=== PATIENT | female | born 1990 | race Caucasian/White ===

== ENCOUNTER 2016-07-19 20:04 | Emergency (ER) | payer BC ==
[~2016-07-19] VITALS: Ht 172.7 cm; Wt 70.0 kg
[~2016-07-19 20:04] MED LIST: TRAM50 PO
[2016-07-19 20:07] VITALS: BP 121/74; PULSE 94; RESP 22; TEMP 99; O2SAT 97
--- NOTE | 2016-07-19 20:43 | PD ---
Physical Exam Date Seen by Provider: Jul 19, 2016 Time Seen by Provider: 20:39 Narrative 25 y/o female here with 5 day Hx. Bronchitis treated with Azithromycin for 3 days, with increased SOB and Wheezing today. No Hx Asthma or other lung disease. Has had fevers. No Sore throat. Has been having Bad SYED today. V/S Stable. Awaiting Med bed Placement. Data Data Last Documented VS Vital Signs Date Time Temp Pulse Resp B/P Pulse Ox O2 Delivery O2 Flow Rate FiO2 07/19/16 20:07 99.0 94 22 121/74 97 MDM Medical Record Reviewed: Yes Supervised Visit with MIGUEL: Yes Condition: Stable Jan Mensah Jul 19, 2016 20:43
[2016-07-19] MEDS ORDERED: RESP: ALBUTEROL 2.5 MG/IPRATROPIUM 0.5 MG NEB (SCH) INH ONE (21:00)
--- NOTE | 2016-07-19 21:10 | PD ---
HPI Chief Complaint: Respiratory Symptoms Time Seen by Provider: 21:06 Travel History International Travel<30 days: No Contact w/Intl Traveler<30days: No Traveled to known affect area: No History of Present Illness HPI 25-year-old white female presents to emergency Department with complaints of worsening shortness of breath over the last 3 days. She states that she has had bronchitis now for the past 5-7 days. She was seen in urgent care 3 days ago and was placed on Zithromax. She is also taking Tessalon Perles for cough. She has had subjective fever and chills, headache, ear pain, runny nose, congestion, cough, colored sputum, pleuritic chest wall pain, chest tightness, wheezing, nausea, posttussive emesis and general malaise. She denies any abdominal pain or diarrhea. No dysuria or frequency. She denies history of asthma. [facility] Past Medical History Medical History: Denies Significant Hx Diminished Hearing: No Immunizations Current: Yes Tetanus Vaccination: < 5 Years Influenza Vaccination: No ?: Not : 0 Para: 0 Past Surgical History Surgical History: No Previous Surgery Social History Alcohol Use: Yes ([facility]) Tobacco Use: No Substance Use: No Allergies-Medications (Allergen,Severity, Reaction): Coded Allergies: No Known Allergies (Verified , 05/25/14) Reported Meds & Prescriptions Reported Meds & Active Scripts Active Proventil Hfa 6.7 GM Inh (Albuterol Sulfate) 90 Mcg/Act Aer 2 Puff INH Q4-6H PRN Deltasone (Prednisone) 20 Mg Tab 20 Mg PO TID Review of Systems Except as stated in HPI: all other systems reviewed are Neg Physical Exam Narrative GENERAL: Well-developed, well-nourished in no acute distress. Nontoxic appearing. HEAD: Normocephalic, atraumatic. EYES: Pupils equal round and reactive. Extraocular motions intact. No scleral icterus. No injection or drainage. ENT: TMs clear without erythema. The external auditory canals clear. Nose: clear nasal discharge . Posterior pharynx is pink and moist. No tonsillar edema or exudate. Uvula midline. Airway patent. NECK: Trachea midline.Supple, nontender, moves head freely. No central bony tenderness or spasm. CARDIOVASCULAR: Regular rate and rhythm without murmurs, gallops, or rubs. RESPIRATORY: Few rhonchi and fine next very wheeze. No Rales. No respiratory distress. GASTROINTESTINAL: Abdomen soft, non-tender, nondistended. No hepato-splenomegaly , or palpable masses. No guarding. EXTREMITIES: No clubbing, cyanosis, or edema. No joint tenderness, effusion, or edema noted. BACK: Nontender without deformity or crepitance. No flank tenderness. Data Data Last Documented VS Vital Signs Date Time Temp Pulse Resp B/P Pulse Ox O2 Delivery O2 Flow Rate FiO2 07/19/16 20:07 99.0 94 22 121/74 97 Orders Chest, Pa & Lat (07/19/16 21:00) Albuterol-Ipratropium Neb (Duoneb Neb) (07/19/16 21:00) [facility] Medical Decision Making Medical Screen Exam Complete: Yes Emergency Medical Condition: Yes Medical Record Reviewed: Yes Interpretation(s) Last 24 hours Impressions Chest X-Ray 07/19/16 2100 Signed Impressions: Service Date/Time: Tuesday, July 19, 2016 21:08 - CONCLUSION: No acute cardiopulmonary disease. Yanelis Flores MD Differential Diagnosis MDM: High Differential diagnoses: Pneumonia, bronchitis, URI, asthma, RAD, legionnaire's disease, SARS, ARDS, influenza, bronchiolitis, RSV,PE,CHF Narrative Course Patient is given 1 DuoNeb. Chest x-ray. X-ray the chest is negative. Patient is feeling subjectively better. This is reactive airway disease, bronchitis Diagnosis Primary Impression: Reactive airway disease Qualified Code: J45.20 - Reactive airway disease, mild intermittent, uncomplicated Additional Impression: Bronchitis Patient Instructions: General Instructions Departure Forms: Tests/Procedures, Work Release Special Instructions: No work 3 days. Additional Instructions: Rest. Increase fluids. Tylenol and Advil. Robitussin-DM. Continue your antibiotic, prednisone, and albuterol. Followup with your Dr. in one week. Return to the ER for any problems. Med/Other Pt SpecificInfo: Prescription(s) given Scripts Albuterol 6.7 GM Inh (Proventil Hfa 6.7 GM Inh)90 Mcg/Act Aer2 Puff INH Q4-6H PRN (SHORTNESS OF BREATH) #1 INHALER Prov:Santino Linares MD 07/19/16 Prednisone (Deltasone)20 Mg Tab20 Mg PO TID #15 TAB Prov:Santino Linares MD 07/19/16 Disposition: 01 DISCHARGE HOME Condition: Stable Jhonny Kaplan Jul 19, 2016 21:10
--- NOTE | 2016-07-19 21:19 | RADRPT ---
EXAM DATE/TIME: 07/19/2016 21:08 [place] COMPARISON: No previous studies available for comparison. INDICATIONS : Wheezing MEDICAL HISTORY : Bronchitis SURGICAL HISTORY : None. ENCOUNTER: Initial ACUITY: 3 days PAIN SCORE: 0/10 LOCATION: Bilateral chest FINDINGS: The lungs are clear without infiltrate, nodule, or mass. There is no appreciable pleural effusion fo r technique. Heart and mediastinum are unremarkable. CONCLUSION: No acute cardiopulmonary disease. Yanelis Flores MD on July 19, 2016 at 21:17 Board Certified Radiologist. This report was verified electronically.
[2016-07-19] MEDS ORDERED: ALBU6.7H INH (21:30)
[2016-07-19] MEDS ORDERED: PRED-503 PO (21:30)
[2016-07-19 21:55] VITALS: BP 134/86; PULSE 96; RESP 18; TEMP 98.7; O2SAT 98
== END 2016-07-19 22:04 | disposition home or self-care (01) ==
LOC: NEPK 20:04
DX: J45.909 Unspecified asthma, uncomplicated (principal); J40 Bronchitis, not specified as acute or chronic; H92.09 Otalgia, unspecified ear
CPT/HCPCS: 71020; 94664; 99283